=== PATIENT | female | born 1985 | race Caucasian/White ===

== ENCOUNTER 2016-04-20 13:52 | Emergency (ER) | payer SELFPAY | END 2016-04-20 16:38 | disposition home or self-care (01) | LOC: ER 13:52 | DX: L03.113 Cellulitis of right upper limb (principal); F17.200 Nicotine dependence, unspecified, uncomplicated; Z90.89 Acquired absence of other organs | CPT/HCPCS: 36415; 80307; 96365; 96367; 96375; J0696; J1200; J1885; J3370 ==